=== PATIENT | male | born 1955 | race Caucasian/White ===

== ENCOUNTER 2016-09-08 08:55 | Emergency (ER) | payer OTHER ==
[~2016-09-08] VITALS: Ht 177.8 cm; Wt 106.6 kg
--- NOTE | 2016-09-08 09:21 | ED GI/GU/ABDOMINAL COMPLAINT ---
History of Present Illness General Chief Complaint: General Adult Stated Complaint: L SIDE FLANK AND BACK PAIN Source: patient, family, old records Exam Limitations: no limitations Vital Signs & Intake/Output Vital Signs & Intake/Output Vital Signs Date Time Temp Pulse Resp B/P Pulse O2 O2 Flow FiO2 Ox Delivery Rate 09/08 1113 97.3 106 20 153/94 09/08 0900 97.3 106 20 153/94 99 Room Air Allergies Coded Allergies: NO KNOWN ALLERGIES (01/19/13) Triage Note: LEFT FLANK PAIN SINCE YESTERDAY. TOOK IBUPROFEN AND THE PAIN WENT AWAY. PAIN CAME BACK TODAY AND IBUPROFEN HASN'T WORKED. PAIN DOES NOT RADIATE. DENIES URINARY SYMPTOMS Triage Nurses Notes Reviewed? yes HPI: Patient presents with left flank pain radiating to the left lower back since yesterday afternoon. Yesterday the pain was relieved after he took 800 mg of Motrin but then this morning, a short while after getting up, the pain returned. Patient took 600 mg of Motrin and then went to work. The pain continued so he took another 400 mg of Motrin again without relief. The pain is sharp in nature. There are no aggravating factors however he cannot find a position of comfort. There is no dysuria or hematuria. There is no nausea or vomiting. Patient does have a history of diverticulitis in the past but states that that pain was totally different that the pain is currently having. Past History Travel History Traveled to [place] past 21 day No Medical History Any Pertinent Medical History? see below for history Cardiovascular: hyperlipidemia Surgical History Surgical History: non-contributory Psychosocial History What is your primary language Citizen [place] Tobacco Use: Never used ETOH Use: occasional use Illicit Drug Use: denies illicit drug use Family History Hx Contributory? No Review of Systems Review of Systems Constitutional: Reports: no symptoms. EENTM: Reports: no symptoms. Respiratory: Reports: no symptoms. Cardiovascular: Reports: no symptoms. GI: Reports: no symptoms. Genitourinary: Reports: no symptoms. Musculoskeletal: Reports: see HPI, back pain. Skin: Reports: no symptoms. Neurological/Psychological: Reports: no symptoms. Hematologic/Endocrine: Reports: no symptoms. Immunologic/Allergic: Reports: no symptoms. All Other Systems: Reviewed and Negative Physical Exam Physical Exam General Appearance: well developed/nourished, alert, awake Head: atraumatic Eyes: Bilateral: PERRL, EOMI. Ears, Nose, Throat, Mouth: hearing grossly normal, moist mucous membrane Neck: normal inspection, supple, full range of motion Respiratory: normal breath sounds, chest non-tender, no respiratory distress, lungs clear Cardiovascular: regular rate/rhythm, normal peripheral pulses Gastrointestinal: normal bowel sounds, soft, non-tender, no organomegaly Back: normal inspection Extremities: normal range of motion Neurologic/Psych: no motor/sensory deficits, awake, alert, oriented x 3, normal mood/affect Skin: intact, normal color, warm/dry Core Measures ACS in differential dx? No Severe Sepsis Present: No Septic Shock Present: No Progress Differential Diagnosis: diverticulitis, ureterolithiasis, UTI/pyelo, MUSCLE STRAIN Plan of Care: Orders Procedure Date/time Status URINALYSIS 09/08 920 Complete COMPREHENSIVE METABOLIC PANEL 09/08 920 Complete CBC WITHOUT DIFFERENTIAL 09/08 920 Complete Laboratory Tests 09/08/16 1049: Anion Gap 11, Estimated GFR > 60, BUN/Creatinine Ratio 17.8, Glucose 106 H, Calcium 9.0, Total Bilirubin 0.7, AST 34, ALT 86 H, Alkaline Phosphatase 61, Total Protein 7.2, Albumin 3.9, Globulin 3.3, Albumin/Globulin Ratio 1.2, CBC w Diff NO MAN DIFF REQ, RBC 5.28, MCV 87.2, MCH 28.8, RDW 13.1, MPV 7.9, Gran % 88.7 H, Lymphocytes % 7.1 L, Monocytes % 3.8, Eosinophils % 0.1, Basophils % 0.3, Absolute Granulocytes 11.7 H, Absolute Lymphocytes 0.9 L, Absolute Monocytes 0.5, Absolute Eosinophils 0, Absolute Basophils 0, PUBS MCHC 33.1 09/08/16 1032: Urinalysis HEAVY H, Urine Color YEL, Urine Clarity TURBD H, Urine pH 6.0, Ur Specific [place] >= 1.030, Urine Protein NEG, Urine Ketones TRACE H, Urine Nitrite NEG, Urine Bilirubin NEG, Urine Urobilinogen 0.2, Ur Leukocyte Esterase NEG, Ur Microscopic SEDIMENT EXAMINED, Urine RBC 5-10 H, Urine Crystals 3+ CA OX H, Urine Hemoglobin MOD H, Urine Glucose NEG Diagnostic Imaging: Viewed by Me: CT Scan. Discussed w/RAD: CT Scan. Radiology Impression: PATIENT: SCOTT MANNING V PRESENT AGE: 61 PATIENT ACCOUNT NO: [id number] : 56 LOCATION: [facility] ORDERING PHYSICIAN: FLY MORAN MD SERVICE DATE: 09/08/16 EXAM TYPE: CAT - CT ABD & PELVIS W/O IV CONTRAS EXAMINATION: CT ABDOMEN AND PELVIS WITHOUT CONTRAST CLINICAL INFORMATION: Kidney stone. Left flank pain. COMPARISON : Abdominal CT January 2013 TECHNIQUE: Multidetector volumetric imaging was performed from the superior aspect of the liver through the pubic symphysis. Sagittal and coronal reformatted images were obtained on the technologist's workstation. FINDINGS: LUNG BASES: The visualized lung bases are unremarkable. LIVER, GALLBLADDER, AND BILIARY TREE: The liver is normal in size, shape, and attenuation. No focal hepatic lesion or biliary ductal dilatation is present. The gallbladder is unremarkable with no evidence of radiopaque gallstones, gallbladder wall thickening, or obvious pericholecystic inflammatory changes. PANCREAS: Unremarkable. SPLEEN: Unremarkable. ADRENAL GLANDS: Unremarkable. KIDNEYS AND URETERS: There is a minimal dilatation of the distal left ureter and collecting system with a 2 mm calculus just proximal to the left ureteral vesicle junction. No additional calculi noted. 12 mm simple cyst in the lower pole of the right kidney. BLADDER: Unremarkable. GASTROINTESTINAL TRACT: The cecum is present within the right pelvis. The appendix is not clearly visualized. However, there is no surrounding inflammatory changes. Scattered diverticulosis in the distal large bowel without diverticulitis. Small bowel normal. Stomach normal. ABDOMINAL WALL: Small fat-containing left inguinal hernia. LYMPH NODES: Normal. VASCULAR: Mild arterial calcification throughout. PELVIC VISCERA: Unremarkable. OSSEOUS STRUCTURES: Unremarkable. IMPRESSION: Small distal left ureteral calculus just proximal to the left UV junction with minimal dilatation of the more proximal collecting system. Small fat-containing left inguinal hernia. Mild calcific atherosclerotic disease. DICTATED BY: RADHA CABALLERO MD DATE/TIME DICTATED:09/08/16957 CELL OPERATION SUPERVISOR: MELCHOR DATE/TIME TRANSCRIBED:09/08/16957 CONFIDENTIAL, DO NOT COPY WITHOUT APPROPRIATE AUTHORIZATION. <Electronically signed in Other Vendor System> SIGNED BY: RADHA CABALLERO MD 09/08/16 1021 Initial ED EKG: none Comments: His continues to have pain despite 2 doses of IV Dilaudid. Patient has been seen by Dr. Walls. After has recommended stent placement. The patient wishes to try a little bit more pain medications to see if he can pass on his own. Patient is currently pain-free. Awaiting urinalysis. Departure Departure Disposition: HOME OR SELF CARE Condition: Stable Clinical Impression Primary Impression: Kidney stone on left side Referrals: KATT FRASER,LINETTE HERRERA MD,MAYURI (PCP/Family) Additional Instructions: Drank plenty of fluids. Call Dr. Walls for follow-up. Departure Forms: Customer Survey General Discharge Information Prescriptions: Current Visit Scripts Oxycodone HCl/Acetaminophen (Percocet 5-325 MG Tablet) 1-2 TAB PO Q6P PRN PAIN #20 TAB Tamsulosin HCl (Flomax) 1 CAP PO DAILY #14 CAP
--- NOTE | 2016-09-08 10:21 | CT SCAN REPORT ---
EXAMINATION: CT ABDOMEN AND PELVIS WITHOUT CONTRAST CLINICAL INFORMATION: Kidney stone. Left flank pain. COMPARISON: Abdominal CT January 2013 TECHNIQUE: Multidetector volumetric imaging was performed from the superior aspect of the liver through the pubic symphysis. Sagittal and coronal reformatted images were obtained on the technologist's workstation. FINDINGS: LUNG BASES: The visualized lung bases are unremarkable. LIVER, GALLBLADDER, AND BILIARY TREE: The liver is normal in size, shape, and attenuation. No focal hepatic lesion or biliary ductal dilatation is present. The gallbladder is unremarkable with no evidence of radiopaque gallstones, gallbladder wall thickening, or obvious pericholecystic inflammatory changes. PANCREAS: Unremarkable. SPLEEN: Unremarkable. ADRENAL GLANDS: Unremarkable. KIDNEYS AND URETERS: There is a minimal dilatation of the distal left ureter and collecting system with a 2 mm calculus just proximal to the left ureteral vesicle junction. No additional calculi noted. 12 mm simple cyst in the lower pole of the right kidney. BLADDER: Unremarkable. GASTROINTESTINAL TRACT: The cecum is present within the right pelvis. The appendix is not clearly visualized. However, there is no surrounding inflammatory changes. Scattered diverticulosis in the distal large bowel without diverticulitis. Small bowel normal. Stomach normal. ABDOMINAL WALL: Small fat-containing left inguinal hernia. LYMPH NODES: Normal. VASCULAR: Mild arterial calcification throughout. PELVIC VISCERA: Unremarkable. OSSEOUS STRUCTURES: Unremarkable. IMPRESSION: Small distal left ureteral calculus just proximal to the left UV junction with minimal dilatation of the more proximal collecting system. Small fat-containing left inguinal hernia. Mild calcific atherosclerotic disease.
[2016-09-08 11:08] LABS: ABSOLUTE BASOPHIL COUNT 0 /CUMM (0.0-0.2); ABSOLUTE EOSINOPHIL COUNT 0 /CUMM (0.0-0.7); ABSOLUTE GRANULOCYTE CT 11.7 /CUMM (1.4-6.5); ABSOLUTE LYMPH COUNT 0.9 /CUMM (1.2-3.4); ABSOLUTE MONOCYTE COUNT 0.5 /CUMM (0.10-0.60); BASOPHIL % 0.3 % (0.0-2.0); EOSINOPHIL % 0.1 % (0-5); HEMATOCRIT 46.1 % (42-52); MEAN CORPUSCULAR HGB 28.8 PG (27.0-31.0); MEAN CORPUSCULAR HGB CONC 33.1 G/DL (33.0-37.0); MEAN CORPUSCULAR VOLUME 87.2 FL (80.0-94.0); MEAN PLATELET VOLUME 7.9 FL (7.4-10.4); PLATELET COUNT 241 /CUMM (130-400); RBC DISTRIBUTION WIDTH 13.1 % (11.5-14.5); RED BLOOD CELL CT 5.28 /CUMM (4.70-6.10); WHITE BLOOD CELL COUNT 13.2 /CUMM (4.8-10.8)
[2016-09-08 11:35] LABS: GRANULOCYTE % 88.7 % (42.2-75.2)
[2016-09-08] MEDS ORDERED: PERCOCET 5-3251 EACH PO (12:57)
[2016-09-08] MEDS ORDERED: FLOMAX0.4 M1 PO (12:57)
[2016-09-08 13:39] VITALS: BP 148/78
== END 2016-09-08 13:40 ==
LOC: ERH 08:55
PROVIDERS: Emergency Medicine
DX: N20.0 Calculus of kidney (principal); M54.5 Low back pain
CPT/HCPCS: 74176; 81001; 96361; 96374; 96375; 96376; J1885; J2405